=== PATIENT | male | born 1945 | race Caucasian/White ===

== ENCOUNTER 2022-01-31 14:45 | Emergency (ER) | payer MEDICARE, OTHER ==
[2022-01-31] MEDS ORDERED: Dextrose 5%-0.9% NaCl 1,000 ML IV SCH (15:00)
[2022-01-31] MEDS ORDERED: Sodium Chloride 0.9% 10 ML Syringe FLUSH ONE (16:09)
[2022-01-31] MEDS ORDERED: Iopamidol 755 Mg/ML 100 ML Bottle IVPUSH ONE (16:09)
[2022-01-31] MEDS ORDERED: Sodium Chloride 0.9% 100 ML IV SCH (16:15)
[2022-01-31] MEDS ORDERED: Clopidogrel 75 MG Tab PO ONE (18:20)
[2022-01-31] MEDS ORDERED: Gabapentin 100 MG Cap PO ONE (18:21)
[2022-01-31] MEDS ORDERED: atorvaSTATin 40 MG Tab PO ONE (18:21)
== END 2022-01-31 18:50 | disposition home or self-care (01) ==
LOC: JD.ED 14:45
DX: I63.9 Cerebral infarction, unspecified (principal); J44.9 Chronic obstructive pulmonary disease, unspecified; Z79.02 Long term (current) use of antithrombotics/antiplatelets; Z79.899 Other long term (current) drug therapy
CPT/HCPCS: 36415; 70450; 70496; 70498; 71045; 80053; 80061; 80307; 81001; 82947; 83735; 83880; 85025; 85610; 85652; 85730; 86140; 93005; 99285; A9270; J3490; J7042; Q9967